=== PATIENT | female | born 1935 | race Asian ===

== ENCOUNTER 2018-05-08 16:08 | Emergency (ER) | payer MEDICARE, OTHER ==
[~2018-05-08] VITALS: Ht 154.9 cm; Wt 50.0 kg
[2018-05-08] MEDS ORDERED: ATOR10TA84 PO (16:19)
[2018-05-08] MEDS ORDERED: AMLO-512 PO (16:19)
[2018-05-08] MEDS ORDERED: GABA-531 PO (16:19)
[2018-05-08] MEDS ORDERED: LEVO25TA9 PO (16:19)
[2018-05-08] MEDS ORDERED: RIVA1PAT3 TD (16:19)
[2018-05-08] MEDS ORDERED: OLME40 PO (16:19)
[2018-05-08] MEDS ORDERED: ASPI-556 PO (16:19)
[2018-05-08] MEDS ORDERED: MULT-1259 PO (16:19)
[2018-05-08] MEDS ORDERED: SERT50TA12 PO (16:19)
[2018-05-08] MEDS ORDERED: METF500T6 PO (16:19)
[2018-05-08] MEDS ORDERED: FOLI0.8T PO (16:19)
[2018-05-08] MEDS ORDERED: METO50 PO (16:19)
[2018-05-08] MEDS ORDERED: IBAN150T PO (16:22)
[2018-05-08] MEDS ORDERED: CALC1TAB90 PO (16:22)
[2018-05-08] MEDS ORDERED: DENO60DI SQ (16:22)
[2018-05-08 16:37] LABS: GLUCOSE,POINT OF CARE 115 MG/DL (70-110)
[2018-05-08] MEDS ORDERED: ACETAMINOPHEN/CODEINE 300-30 MG TABLET PO ONE (17:30)
[2018-05-08 18:39] VITALS: BP 128/68
== END 2018-05-08 18:56 | disposition home or self-care (01) ==
LOC: EMS 16:11
DX: S16.1XXA Strain of muscle, fascia and tendon at neck level, initial encounter (principal); E03.9 Hypothyroidism, unspecified; E78.00 Pure hypercholesterolemia, unspecified; F32.9 Major depressive disorder, single episode, unspecified; I10 Essential (primary) hypertension; E11.9 Type 2 diabetes mellitus without complications; Z79.82 Long term (current) use of aspirin; Z95.1 Presence of aortocoronary bypass graft; V89.2XXA Person injured in unspecified motor-vehicle accident, traffic, initial encounter; Y93.89 Activity, other specified; Y92.410 Unspecified street and highway as the place of occurrence of the external cause; Y99.8 Other external cause status
CPT/HCPCS: 72040; 99284